=== PATIENT | female | born 1970 | race Caucasian/White ===

== ENCOUNTER → 2023-10-26 11:55 | Outpatient (BNVA) | payer MEDICARE, BC, SELFPAY | PROVIDERS: Visit Provider Student in an Organized Health Care Education/Training Program | DX: E65 Localized adiposity (principal); R79.89 Other specified abnormal findings of blood chemistry; R63.5 Abnormal weight gain | CPT/HCPCS: 99202; 99204 ==

== ENCOUNTER → 2023-11-02 14:15 | Outpatient (BNVA) | payer MEDICARE, BC, SELFPAY | PROVIDERS: Visit Provider Student in an Organized Health Care Education/Training Program | DX: E65 Localized adiposity (principal) | CPT/HCPCS: 99202; 99213 ==